=== PATIENT | male | born 1995 | race Caucasian/White ===

== ENCOUNTER 2020-01-19 06:43 | Day surgery (SDC) | payer MEDICAID ==
[2020-01-19] MEDS ORDERED: Sodium Chloride 0.9% 1,000 ML IV SCH (07:00)
[2020-01-19] MEDS ORDERED: Sodium Tetradecyl Sulfate 1% 20 MG/2 ML SDV ONE (07:07)
[2020-01-19] MEDS ORDERED: Lidocaine 1% with EPINEPHrine 1:100,000 50 ML MDV ONE (07:07)
[2020-01-19] MEDS ORDERED: Sodium Chloride 0.9% 10 ML ONE (07:07)
[2020-01-19] MEDS ORDERED: fentaNYL 100 MCG/2 ML SDV ONE ×2 (07:28→08:13)
[2020-01-19] MEDS ORDERED: Midazolam 1 MG/ML 2 ML SDV ONE ×2 (07:28→08:12)
[2020-01-19] MEDS ORDERED: Propofol 200 MG/20 ML SDV ONE ×2 (07:28→08:30)
[2020-01-19] MEDS ORDERED: Lidocaine 1% w/EPINEPHrine 50 ML, Sodium Bicarbonate 5 MEQ in Sodium Chloride 0.9% 950 ML INJECT SCH (09:00)
--- NOTE | 2020-01-19 14:09 | OR ---
DATE OF PROCEDURE: 01/19/2020 SURGEON: Huber Amin MD PROCEDURES: 1. Radiofrequency ablation of right greater saphenous vein. 2. Right leg sclerotherapy, multiple. 3. Compression wrap, right leg ([id number]). COMPLICATION: None. AUTISTIC TEACHER: None. ANESTHETIC: MAC/local. PREOPERATIVE DIAGNOSIS: Venous insufficiency with inflammation and pain. POSTOPERATIVE DIAGNOSIS: Venous insufficiency with inflammation and pain. RISKS: Risks, benefits, alternatives, and limitations including, but not limited to infection, bleeding, and DVT formation, along with chronic numbness, skin changes, and other risks not listed here were explained to the patient, who wished to proceed. PROCEDURE IN DETAIL: The patient was placed in supine position. The right GSV was evaluated and was noted to be small in caliber distal to the knee. Therefore, this would be the entry point. The vein was accessed using a 21-gauge needle and then exchanged for a 35,000th wire, then exchanged for a 7-Occitan sheath. This was advanced to 3 cm from saphenofemoral junction. Tumescent fluid was injected in 1 cm jacket around this and was verified a second and a third time. Direct even pressure was held as the probe was deployed x2 proximally and distally and x1 in all other segments. Sheath and device were then held and removed and direct pressure was held for 10 minutes. Dermabond was applied. Sclerotherapy was performed in the right leg. There were 3 on the right leg ranging in size from 1 to 4 cm. This was injected using 0.33% sodium tetradactyl, always drawn back to ensure intravascular injection only. No more than 2 mL was injected in 1 location. Two-layer two-stage compression wrapping was then performed in [id number] distal to proximal gradient. The patient tolerated the procedure well. Huber Amin MD /[id number]
== END 2020-01-19 10:25 | disposition home or self-care (01) ==
LOC: JP.SDS 06:43
PROVIDERS: ATTEND Surgery
DX: I87.2 Venous insufficiency (chronic) (peripheral) (principal); I80.01 Phlebitis and thrombophlebitis of superficial vessels of right lower extremity
CPT/HCPCS: 36471; 36475; J1642; J2250; J2704; J3010; J7030; J3490